=== PATIENT | female | born 1955 | race Caucasian/White ===

== ENCOUNTER 2020-04-30 18:38 | Inpatient (IN) ==
[2020-04-30] MEDS ORDERED: Isovue-370 500 ML BOTTLE IVP ONE (19:23)
[2020-04-30 21:13] LABS: Basophils # 0.1 K/mcL (0.0-0.2); Basophils % 0.7 %; Eosinophils # 0.3 K/mcL (0.0-0.6); Eosinophils % 2.8 %; Hematocrit 41.2 % (35.3-44.9); Hemoglobin 12.8 g/dL (11.5-15.4); Immature Granulocytes % 0.5 % (0-4); Lymphocytes # 1.5 K/mcL (0.6-4.6); Lymphocytes % 12.5 %; Mean Corpuscular HGB Conc 31.1 g/dL (31.6-35.5); Mean Corpuscular Hemoglobin 27.8 pg (28.0-33.3); Mean Corpuscular Volume 89.4 fL (83.0-100.0); Mean Platelet Volume 10.9 fL (9.4-12.4); Monocytes # 0.6 K/mcL (0.0-1.3); Neutrophils # 9.5 K/mcL (1.6-8.9); Platelet Count 304 K/mcL (140-400); Red Blood Count 4.61 M/mcL (3.82-4.97); Red Cell Distribution Width 13.8 % (11.5-14.5); Segmented Neutrophils % 78.5 %; White Blood Count 12.1 K/mcL (4.3-11.1)
[2020-04-30 21:21] LABS: BUN/Creatinine Ratio 13 (6-26); Blood Urea Nitrogen 12 mg/dL (8-23); Calcium 9.8 mg/dL (8.6-10.3); Carbon Dioxide 30 mEq/L (23-29); Chloride 98 mEq/L (98-107); Glucose 309 mg/dL (70-105); Osmolality,Calculated 295 (280-300); Sodium 137 mEq/L (136-145); eGFR For African Americans > 60 (> 60); eGFR For Non-African Americans > 60 (> 60)
[2020-04-30 21:23] LABS: Troponin I 0.03 ng/mL (< 0.04)
[2020-04-30] MEDS ORDERED: Ketorolac 15 MG/ML VIAL IVP ONE (22:36)
[2020-05-01 01:49] LABS: Adenovirus Not Detected (Not Detect); Bordetella Pertussis Not Detected (Not Detect); Chlamydophila pneumoniae Not Detected (Not Detect); Coronavirus 229E Not Detected (Not Detect); Coronavirus HKU1 Not Detected (Not Detect); Coronavirus NL63 Not Detected (Not Detect); Coronavirus OC43 Not Detected (Not Detect); Human Metapneumovirus Not Detected (Not Detect); Human Rhinovirus/Enterovirus Not Detected (Not Detect); Influenza A Subtype 2009 H1 Not Detected (Not Detect); Influenza B Not Detected (Not Detect); Mycoplasma pneumoniae Not Detected (Not Detect); Parainfluenza Virus 1 Not Detected (Not Detect); Parainfluenza Virus 2 Not Detected (Not Detect); Parainfluenza Virus 3 Not Detected (Not Detect); Parainfluenza Virus 4 Not Detected (Not Detect); Respiratory Syncytial Virus Not Detected (Not Detect); SARS-CoV-2 Not Detected (Not Detect)
[2020-05-01] MEDS ORDERED: *HR* Promethazine 25 MG/ML VIAL IVP PRN (03:30)
[2020-05-01] MEDS ORDERED: Acetaminophen 325 MG TABLET PO PRN (03:30)
[2020-05-01] MEDS ORDERED: Naloxone 0.4 MG/ML INJ IVP PRN (03:30)
[2020-05-01] MEDS ORDERED: *HR* Dextrose 50 % in Water (Vial) 50 ML VIAL IVP PRN (03:31)
[2020-05-01] MEDS ORDERED: D5% in Water 1,000 ML IVC PRN (03:31)
[2020-05-01] MEDS ORDERED: Dextrose Gel 15 GM/37.5 ML TUBE PO PRN ×2 (03:31)
[2020-05-01] MEDS: diazePAM 5 MG TABLET PO SCH ×2 (03:51→20:10)
[2020-05-01] MEDS: *HR* OxyCODONE Immed Rel 15 MG TABLET PO PRN ×3 (04:21→20:10)
[2020-05-01] MEDS: Insulin LISPRO 300 UNITS/3 ML VIAL SQ SCH ×4 (05:57→18:48)
[2020-05-01] MEDS: MethylPREDNISolone 40 MG/ML VIAL IVP SCH ×2 (07:06→18:50)
[2020-05-01 07:18] LABS: Basophils # 0.1 K/mcL (0.0-0.2); Basophils % 1.1 %; Eosinophils # 0.5 K/mcL (0.0-0.6); Eosinophils % 4.3 %; Hematocrit 40.9 % (35.3-44.9); Hemoglobin 12.8 g/dL (11.5-15.4); Immature Granulocytes % 0.4 % (0-4); Lymphocytes # 2.4 K/mcL (0.6-4.6); Lymphocytes % 21.1 %; Mean Corpuscular HGB Conc 31.3 g/dL (31.6-35.5); Mean Corpuscular Hemoglobin 28.1 pg (28.0-33.3); Mean Corpuscular Volume 89.9 fL (83.0-100.0); Mean Platelet Volume 10.3 fL (9.4-12.4); Monocytes # 0.7 K/mcL (0.0-1.3); Neutrophils # 7.6 K/mcL (1.6-8.9); Platelet Count 277 K/mcL (140-400); Red Blood Count 4.55 M/mcL (3.82-4.97); Red Cell Distribution Width 13.8 % (11.5-14.5); Segmented Neutrophils % 67.1 %; White Blood Count 11.4 K/mcL (4.3-11.1)
[2020-05-01 07:38] LABS: Alanine Aminotransferase 9 Units/L (7-52); Albumin 3.6 g/dL (3.5-5.7); Albumin/Globulin Ratio 1.5 (1.1-2.2); Alkaline Phosphatase 86 Units/L (34-104); Aspartate Amino Transferase 11 Units/L (13-39); BUN/Creatinine Ratio 15 (6-26); Bilirubin,Total 0.7 mg/dL (0.3-1.0); Blood Urea Nitrogen 12 mg/dL (8-23); Calcium 9.3 mg/dL (8.6-10.3); Carbon Dioxide 29 mEq/L (23-29); Chloride 99 mEq/L (98-107); Globulin 2.4 g/dL (2.4-3.5); Glucose 303 mg/dL (70-105); Magnesium 1.5 mg/dL (1.6-2.6); Osmolality,Calculated 297 (280-300); Potassium 3.8 mEq/L (3.5-5.1); Sodium 138 mEq/L (136-145); eGFR For African Americans > 60 (> 60); eGFR For Non-African Americans > 60 (> 60)
[2020-05-01] MEDS ORDERED: Azithromycin 500 MG VIAL ONE (07:40)
[2020-05-01 07:49] LABS: Troponin I 0.18 ng/mL (< 0.04)
[2020-05-01] MEDS: Famotidine 20 MG TABLET PO SCH (07:56)
[2020-05-01] MEDS ORDERED: Aspirin 325 MG TABLET PO ONE (08:31)
[2020-05-01] MEDS ORDERED: Nitroglycerin 0.4 MG TAB.SUBL SL PRN (08:31)
[2020-05-01] MEDS ORDERED: Perflutren Lipid Microsphere 1.3 ML in 0.9 % Sodium Chloride 8.7 ML IVP PRN (08:31)
[2020-05-01] MEDS ORDERED: Azithromycin 500 MG in 0.9 % Sodium Chloride 250 ML IVPB SCH (09:00)
[2020-05-01] MEDS: tiZANidine 4 MG TABLET PO SCH ×3 (12:03→20:10)
[2020-05-01] MEDS ORDERED: Ipratropium/Albuterol Neb 3 ML IH ONE (12:11)
[2020-05-02] MEDS: *HR* OxyCODONE Immed Rel 15 MG TABLET PO PRN ×4 (02:11→21:50)
[2020-05-02 03:06] LABS: Hematocrit 41.3 % (35.3-44.9); Hemoglobin 12.4 g/dL (11.5-15.4); Mean Corpuscular Hemoglobin 26.6 pg (28.0-33.3); Mean Corpuscular Volume 88.6 fL (83.0-100.0); Mean Platelet Volume 10.3 fL (9.4-12.4); Platelet Count 287 K/mcL (140-400); Red Blood Count 4.66 M/mcL (3.82-4.97); White Blood Count 13.3 K/mcL (4.3-11.1)
[2020-05-02] MEDS: MethylPREDNISolone 40 MG/ML VIAL IVP SCH (05:52)
[2020-05-02 06:23] LABS: BUN/Creatinine Ratio 22 (6-26); Blood Urea Nitrogen 20 mg/dL (8-23); Calcium 9.4 mg/dL (8.6-10.3); Carbon Dioxide 25 mEq/L (23-29); Chloride 96 mEq/L (98-107); Glucose 385 mg/dL (70-105); Osmolality,Calculated 295 (280-300); Potassium 4.3 mEq/L (3.5-5.1); Sodium 133 mEq/L (136-145); Troponin I 0.07 ng/mL (< 0.04); eGFR For African Americans > 60 (> 60); eGFR For Non-African Americans > 60 (> 60)
[2020-05-02] MEDS ORDERED: D5% in Water 1,000 ML IVC PRN (08:28)
[2020-05-02] MEDS ORDERED: *HR* Dextrose 50 % in Water (Vial) 50 ML VIAL IVP PRN (08:28)
[2020-05-02] MEDS ORDERED: Dextrose Gel 15 GM/37.5 ML TUBE PO PRN ×2 (08:28)
[2020-05-02] MEDS: Aspirin 81 MG TAB.CHEW PO SCH (09:21)
[2020-05-02] MEDS: Famotidine 20 MG TABLET PO SCH (09:22)
[2020-05-02] MEDS: Azithromycin 250 MG TABLET PO SCH (09:22)
[2020-05-02] MEDS: diazePAM 5 MG TABLET PO SCH ×2 (09:24→20:47)
[2020-05-02] MEDS: tiZANidine 4 MG TABLET PO SCH ×3 (09:27→20:48)
[2020-05-02] MEDS: predniSONE 20 MG TABLET PO SCH (09:27)
[2020-05-02] MEDS: Insulin LISPRO 300 UNITS/3 ML VIAL SQ SCH ×3 (10:42→16:14)
[2020-05-02] MEDS ORDERED: SUMAtriptan 6 MG/0.5 ML SQ ONE (14:01)
[2020-05-02] MEDS: Levalbuterol Neb 1.25 MG/3 ML IH SCH ×2 (18:36→21:43)
[2020-05-02] MEDS: Budesonide/Formoterol 160/4.5 1 PUFF INH IH SCH (21:43)
[2020-05-03] MEDS: Levalbuterol Neb 1.25 MG/3 ML IH SCH ×4 (03:37→20:01)
[2020-05-03] MEDS: *HR* OxyCODONE Immed Rel 15 MG TABLET PO PRN ×2 (04:55→13:32)
[2020-05-03 05:06] LABS: Hematocrit 37.2 % (35.3-44.9); Hemoglobin 11.4 g/dL (11.5-15.4); Mean Corpuscular HGB Conc 30.6 g/dL (31.6-35.5); Mean Corpuscular Hemoglobin 27.3 pg (28.0-33.3); Mean Corpuscular Volume 89.2 fL (83.0-100.0); Mean Platelet Volume 10.7 fL (9.4-12.4); Platelet Count 291 K/mcL (140-400); Red Blood Count 4.17 M/mcL (3.82-4.97); Red Cell Distribution Width 14.2 % (11.5-14.5); White Blood Count 15.7 K/mcL (4.3-11.1)
[2020-05-03 05:25] LABS: BUN/Creatinine Ratio 27 (6-26); Blood Urea Nitrogen 23 mg/dL (8-23); Calcium 9.1 mg/dL (8.6-10.3); Carbon Dioxide 31 mEq/L (23-29); Chloride 97 mEq/L (98-107); Glucose 364 mg/dL (70-105); Osmolality,Calculated 296 (280-300); Potassium 4.4 mEq/L (3.5-5.1); Sodium 134 mEq/L (136-145); eGFR For African Americans > 60 (> 60); eGFR For Non-African Americans > 60 (> 60)
[2020-05-03] MEDS: tiZANidine 4 MG TABLET PO SCH ×3 (07:56→20:10)
[2020-05-03] MEDS: Aspirin 81 MG TAB.CHEW PO SCH (07:56)
[2020-05-03] MEDS: predniSONE 20 MG TABLET PO SCH (07:56)
[2020-05-03] MEDS: diazePAM 5 MG TABLET PO SCH ×2 (07:56→20:09)
[2020-05-03] MEDS: Famotidine 20 MG TABLET PO SCH (07:56)
[2020-05-03] MEDS: Azithromycin 250 MG TABLET PO SCH (07:56)
[2020-05-03] MEDS: Insulin LISPRO 300 UNITS/3 ML VIAL SQ SCH ×4 (08:25→17:19)
[2020-05-03] MEDS ORDERED: SUMAtriptan 6 MG/0.5 ML SQ ONE ×2 (09:45→19:29)
[2020-05-03] MEDS: Budesonide/Formoterol 160/4.5 1 PUFF INH IH SCH ×2 (10:07→20:01)
[2020-05-03] MEDS: Ipratropium/Albuterol Neb 3 ML IH SCH ×3 (15:22→23:23)
[2020-05-03] MEDS: *HR* OxyCODONE Immed Rel 15 MG TABLET PO SCH ×2 (20:08→22:20)
[2020-05-03] MEDS: Insulin DETEMIR 100 UNIT/ML X5UNITS SQ SCH (20:13)
[2020-05-04] MEDS ORDERED: *HR* HYDROmorphone 2 MG TABLET PO ONE (02:17)
[2020-05-04] MEDS: Ipratropium/Albuterol Neb 3 ML IH SCH ×6 (03:59→23:36)
[2020-05-04] MEDS: Levalbuterol Neb 1.25 MG/3 ML IH SCH ×4 (03:59→20:21)
[2020-05-04 05:18] LABS: Hemoglobin 11.7 g/dL (11.5-15.4); Mean Corpuscular HGB Conc 30.8 g/dL (31.6-35.5); Mean Corpuscular Hemoglobin 28.1 pg (28.0-33.3); Mean Corpuscular Volume 91.3 fL (83.0-100.0); Mean Platelet Volume 10.6 fL (9.4-12.4); Platelet Count 296 K/mcL (140-400); Red Blood Count 4.16 M/mcL (3.82-4.97); Red Cell Distribution Width 14.4 % (11.5-14.5); White Blood Count 12.2 K/mcL (4.3-11.1)
[2020-05-04 05:39] LABS: BUN/Creatinine Ratio 22 (6-26); Blood Urea Nitrogen 18 mg/dL (8-23); Calcium 8.6 mg/dL (8.6-10.3); Carbon Dioxide 31 mEq/L (23-29); Chloride 100 mEq/L (98-107); Glucose 220 mg/dL (70-105); Osmolality,Calculated 293 (280-300); Potassium 3.9 mEq/L (3.5-5.1); Sodium 137 mEq/L (136-145); eGFR For African Americans > 60 (> 60); eGFR For Non-African Americans > 60 (> 60)
[2020-05-04] MEDS: Budesonide/Formoterol 160/4.5 1 PUFF INH IH SCH ×2 (07:55→20:16)
[2020-05-04] MEDS: predniSONE 20 MG TABLET PO SCH (08:42)
[2020-05-04] MEDS: *HR* OxyCODONE Immed Rel 15 MG TABLET PO SCH ×4 (08:42→20:39)
[2020-05-04] MEDS: Famotidine 20 MG TABLET PO SCH (08:42)
[2020-05-04] MEDS: Aspirin 81 MG TAB.CHEW PO SCH (08:42)
[2020-05-04] MEDS: diazePAM 5 MG TABLET PO SCH ×2 (08:42→20:40)
[2020-05-04] MEDS: Insulin LISPRO 300 UNITS/3 ML VIAL SQ SCH ×3 (08:43→17:22)
[2020-05-04] MEDS: tiZANidine 4 MG TABLET PO SCH ×3 (08:43→20:40)
[2020-05-04] MEDS ORDERED: Morphine Sulfate 2 MG/ML SYRINGE IVP PRN (12:06)
[2020-05-04] MEDS ORDERED: SUMAtriptan 6 MG/0.5 ML SQ ONE (12:06)
[2020-05-04] MEDS ORDERED: Morphine Sulfate 2 MG/ML SYRINGE IVP ONE (12:06)
[2020-05-04] MEDS: MethylPREDNISolone 40 MG/ML VIAL IVP SCH ×3 (12:31→23:42)
[2020-05-04] MEDS: Insulin DETEMIR 100 UNIT/ML X5UNITS SQ SCH (20:40)
[2020-05-05] MEDS: Ipratropium/Albuterol Neb 3 ML IH SCH ×3 (03:42→11:19)
[2020-05-05] MEDS: Levalbuterol Neb 1.25 MG/3 ML IH SCH ×2 (03:45→07:51)
[2020-05-05 04:44] LABS: Hematocrit 42.5 % (35.3-44.9); Hemoglobin 12.6 g/dL (11.5-15.4); Mean Corpuscular HGB Conc 29.6 g/dL (31.6-35.5); Mean Corpuscular Hemoglobin 26.8 pg (28.0-33.3); Mean Corpuscular Volume 90.4 fL (83.0-100.0); Mean Platelet Volume 10.5 fL (9.4-12.4); Platelet Count 324 K/mcL (140-400); White Blood Count 12.4 K/mcL (4.3-11.1)
[2020-05-05 05:03] LABS: BUN/Creatinine Ratio 18 (6-26); Blood Urea Nitrogen 17 mg/dL (8-23); Calcium 9.2 mg/dL (8.6-10.3); Carbon Dioxide 32 mEq/L (23-29); Chloride 96 mEq/L (98-107); Glucose 414 mg/dL (70-105); Osmolality,Calculated 297 (280-300); Potassium 4.7 mEq/L (3.5-5.1); Sodium 134 mEq/L (136-145); eGFR For African Americans > 60 (> 60); eGFR For Non-African Americans > 60 (> 60)
[2020-05-05 06:54] VITALS: BP 162/76
[2020-05-05] MEDS: Budesonide/Formoterol 160/4.5 1 PUFF INH IH SCH (07:49)
[2020-05-05] MEDS: Famotidine 20 MG TABLET PO SCH (08:10)
[2020-05-05] MEDS: Aspirin 81 MG TAB.CHEW PO SCH (08:10)
[2020-05-05] MEDS: diazePAM 5 MG TABLET PO SCH (08:10)
[2020-05-05] MEDS: *HR* OxyCODONE Immed Rel 15 MG TABLET PO SCH (08:11)
[2020-05-05] MEDS: tiZANidine 4 MG TABLET PO SCH (08:11)
[2020-05-05] MEDS: Insulin LISPRO 300 UNITS/3 ML VIAL SQ SCH (08:11)
[2020-05-05] MEDS: MethylPREDNISolone 40 MG/ML VIAL IVP SCH (08:11)
== END 2020-05-05 12:33 | disposition home or self-care (01) | DRG 190 ==
LOC: EMEROOARM 18:38 → CDU 18:38 → SUATTDRO 05-01 02:12 → CDU 05-01 02:55 → 3ANU 05-01 18:33
PROVIDERS: ADMIT Student in an Organized Health Care Education/Training Program; ATTEND Student in an Organized Health Care Education/Training Program

== ENCOUNTER 2021-08-24 12:28 | Observation (INO) ==
[2021-08-24 15:05] LABS: Basophils # 0.1 K/mcL (0.0-0.2); Basophils % 0.8 %; Eosinophils # 0.3 K/mcL (0.0-0.6); Eosinophils % 3.8 %; Hematocrit 35.5 % (35.3-44.9); Hemoglobin 10.9 g/dL (11.5-15.4); Immature Granulocytes % 1.3 % (0-4); Lymphocytes # 0.5 K/mcL (0.6-4.6); Lymphocytes % 5.6 %; Mean Corpuscular HGB Conc 30.7 g/dL (31.6-35.5); Mean Corpuscular Volume 91.3 fL (83.0-100.0); Mean Platelet Volume 9.7 fL (9.4-12.4); Monocytes # 0.9 K/mcL (0.0-1.3); Monocytes % 10.8 %; Neutrophils # 6.7 K/mcL (1.6-8.9); Platelet Count 375 K/mcL (140-400); Red Blood Count 3.89 M/mcL (3.82-4.97); Red Cell Distribution Width 13.2 % (11.5-14.5); Segmented Neutrophils % 77.7 %; White Blood Count 8.6 K/mcL (4.3-11.1)
[2021-08-24 15:26] LABS: BUN/Creatinine Ratio 8 (6-26); Blood Urea Nitrogen 7 mg/dL (8-23); Carbon Dioxide 29 mEq/L (23-29); Chloride 103 mEq/L (98-107); Potassium 4.3 mEq/L (3.5-5.1); Sodium 138 mEq/L (136-145); eGFR For African Americans > 60 (> 60)
[2021-08-24 15:27] LABS: Alanine Aminotransferase 13 Units/L (7-52); Albumin 3.3 g/dL (3.5-5.7); Albumin/Globulin Ratio 1.1 (1.1-2.2); Alkaline Phosphatase 65 Units/L (34-104); Aspartate Amino Transferase 21 Units/L (13-39); Bilirubin,Total 0.2 mg/dL (0.3-1.0); Globulin 2.9 g/dL (2.4-3.5); Glucose 172 mg/dL (70-105); Osmolality,Calculated 288 (280-300); Total Protein 6.2 g/dL (6.4-8.9); Troponin I < 0.03 ng/mL (< 0.04); eGFR For Non-African Americans > 60 (> 60)
[2021-08-24] MEDS ORDERED: Isovue-370 500 ML BOTTLE IVP ONE (15:31)
[2021-08-24 16:00] LABS: Influenza A PCR Negative (Negative); Influenza B PCR Negative (Negative); Resp. Syncytial Virus PCR Negative (Negative)
[2021-08-24 16:02] LABS: SARS-CoV-2 by PCR (In House) Positive (Negative)
[2021-08-24 16:06] LABS: Amphetamine Screen,Urine Negative ng/mL (Cutoff=1000); Barbiturate Screen,Urine Negative ng/mL (Cutoff=200); Benzodiazepines Screen,Urine Positive ng/mL (Cutoff=200); Cannabinoid Screen,Urine Negative ng/mL (Cutoff = 50); Cocaine Screen,Urine Negative ng/mL (Cutoff= 300); Opiate Screen,Urine Positive ng/mL (Cutoff=300); Phencyclidine Screen,Urine Negative ng/mL (Cutoff=25)
[2021-08-24 16:44] LABS: Amorphous Sediment,Urine Few per hpf (None-Few); Bacteria,Urine Few per hpf (None-Few); Bilirubin,Urine Negative (Negative); Blood,Urine Negative (Negative); Clarity,Urine Turbid (Clear); Color,Urine Yellow (Yellow); Glucose,Urine (UA) Normal (Normal); Ketones,Urine 10 mg/dL (Negative); Leukocyte Esterase,Urine Negative (Negative); Mucus,Urine Few per lpf (None-Few); Nitrite,Urine Negative (Negative); PH,Urine 7.5 pH Units (5.0-8.0); Protein,Urine Trace mg/dL (Neg-Trace); RBC,Urine 0-3 per hpf (0-3); Specific Gravity,Urine 1.019 (1.010-1.025); Urobilinogen,Urine Normal (Normal)
[2021-08-24] MEDS ORDERED: Ondansetron ODT 4 MG TAB.RAPDIS SL PRN (18:17)
[2021-08-24] MEDS ORDERED: Naloxone 0.4 MG/ML INJ IVP PRN (18:17)
[2021-08-24] MEDS ORDERED: *HR* OxyCODONE Immed Rel 5 MG TABLET PO PRN (18:29)
[2021-08-24] MEDS: dexAMETHasone 4 MG TABLET PO SCH (19:55)
[2021-08-24 20:04] LABS: C-Reactive Protein 32 mg/L (Less than 10)
[2021-08-24] MEDS ORDERED: *HR* OxyCODONE Immed Rel 15 MG TABLET PO ONE (20:32)
[2021-08-24] MEDS: Budesonide/Formoterol 80/4.5 1 PUFF INH IH SCH (20:35)
[2021-08-24 20:44] LABS: Ferritin 55 ng/mL (10-120)
[2021-08-24] MEDS ORDERED: Acetaminophen 325 MG TABLET PO ONE (23:39)
[2021-08-25 04:44] LABS: Basophils # 0.1 K/mcL (0.0-0.2); Eosinophils % 0.2 %; Hematocrit 35.7 % (35.3-44.9); Immature Granulocytes % 1.4 % (0-4); Lymphocytes # 0.4 K/mcL (0.6-4.6); Lymphocytes % 8.2 %; Mean Corpuscular HGB Conc 30.8 g/dL (31.6-35.5); Mean Corpuscular Hemoglobin 27.8 pg (28.0-33.3); Mean Corpuscular Volume 90.2 fL (83.0-100.0); Mean Platelet Volume 9.9 fL (9.4-12.4); Monocytes # 0.1 K/mcL (0.0-1.3); Monocytes % 2.5 %; Neutrophils # 4.2 K/mcL (1.6-8.9); Platelet Count 332 K/mcL (140-400); Red Blood Count 3.96 M/mcL (3.82-4.97); Segmented Neutrophils % 86.7 %; White Blood Count 4.9 K/mcL (4.3-11.1)
[2021-08-25 05:06] LABS: Alanine Aminotransferase 22 Units/L (7-52); Albumin 3.5 g/dL (3.5-5.7); Albumin/Globulin Ratio 1.1 (1.1-2.2); Alkaline Phosphatase 68 Units/L (34-104); Aspartate Amino Transferase 39 Units/L (13-39); BUN/Creatinine Ratio 16 (6-26); Bilirubin,Total 0.3 mg/dL (0.3-1.0); Blood Urea Nitrogen 11 mg/dL (8-23); Carbon Dioxide 25 mEq/L (23-29); Chloride 99 mEq/L (98-107); Chol/HDL Ratio 5.2 (0-4.9); Cholesterol 140 mg/dL (< 200); Globulin 3.1 g/dL (2.4-3.5); Glucose 235 mg/dL (70-105); HDL Cholesterol 27 mg/dL (40-59); LDL Cholesterol,Calculated 86 mg/dL (< 100); Magnesium 1.7 mg/dL (1.6-2.6); Osmolality,Calculated 283 (280-300); Sodium 133 mEq/L (136-145); Total Protein 6.6 g/dL (6.4-8.9); Triglycerides 134 mg/dL (< 150); eGFR For African Americans > 60 (> 60); eGFR For Non-African Americans > 60 (> 60)
[2021-08-25] MEDS ORDERED: Furosemide 20 MG/2 ML VIAL IVP ONE (08:35)
[2021-08-25] MEDS ORDERED: *HR* Dextrose 50 % in Water (Syg) 50 ML SYRINGE IVP PRN (08:37)
[2021-08-25] MEDS ORDERED: Dextrose Gel 15 GM/37.5 ML TUBE PO PRN ×2 (08:37)
[2021-08-25] MEDS: Budesonide/Formoterol 80/4.5 1 PUFF INH IH SCH ×2 (08:50→20:28)
[2021-08-25] MEDS: *HR* Enoxaparin 40 MG/0.4 ML SYRINGE SQ SCH (09:35)
[2021-08-25] MEDS: Azithromycin 250 MG TABLET PO SCH (09:35)
[2021-08-25] MEDS: dexAMETHasone 4 MG TABLET PO SCH (09:35)
[2021-08-25] MEDS: Insulin LISPRO 300 UNITS/3 ML VIAL SUBQ SCH ×2 (11:38→17:23)
[2021-08-25 11:58] LABS: Estimated Average Glucose 183 mg/dl
[2021-08-25] MEDS ORDERED: *HR* OxyCODONE Immed Rel 15 MG TABLET PO PRN (17:02)
[2021-08-25] MEDS: diazePAM 2 MG TABLET PO SCH ×2 (17:22→22:07)
[2021-08-25] MEDS: Gabapentin 300 MG CAPSULE PO SCH ×2 (17:22→21:59)
[2021-08-25] MEDS: *HR* OxyCODONE Immed Rel 5 MG TABLET PO PRN (17:23)
[2021-08-25] MEDS ORDERED: *HR* OxyCODONE ER (12 HR) 10 MG TABLET PO SCH (18:00)
[2021-08-25] MEDS ORDERED: Insulin LISPRO 300 UNITS/3 ML VIAL SUBQ SCH (21:00)
[2021-08-25] MEDS: Topiramate 25 MG TABLET PO SCH (21:59)
[2021-08-26] MEDS: *HR* OxyCODONE Immed Rel 5 MG TABLET PO PRN (05:00)
[2021-08-26] MEDS: *HR* Enoxaparin 40 MG/0.4 ML SYRINGE SQ SCH (05:01)
[2021-08-26 06:42] LABS: Hematocrit 35.1 % (35.3-44.9); Hemoglobin 11.1 g/dL (11.5-15.4); Mean Corpuscular HGB Conc 31.6 g/dL (31.6-35.5); Mean Corpuscular Hemoglobin 28.2 pg (28.0-33.3); Mean Corpuscular Volume 89.1 fL (83.0-100.0); Mean Platelet Volume 9.9 fL (9.4-12.4); Platelet Count 389 K/mcL (140-400); Red Blood Count 3.94 M/mcL (3.82-4.97); Red Cell Distribution Width 13.2 % (11.5-14.5); White Blood Count 5.3 K/mcL (4.3-11.1)
[2021-08-26 07:52] LABS: BUN/Creatinine Ratio 24 (6-26); Blood Urea Nitrogen 18 mg/dL (8-23); Calcium 9.5 mg/dL (8.6-10.3); Carbon Dioxide 29 mEq/L (23-29); Chloride 98 mEq/L (98-107); Glucose 176 mg/dL (70-105); Osmolality,Calculated 290 (280-300); Potassium 3.1 mEq/L (3.5-5.1); Sodium 137 mEq/L (136-145); eGFR For African Americans > 60 (> 60); eGFR For Non-African Americans > 60 (> 60)
[2021-08-26] MEDS: Budesonide/Formoterol 80/4.5 1 PUFF INH IH SCH (08:00)
[2021-08-26 08:17] VITALS: BP 112/69; PULSE 84; TEMP 98
[2021-08-26] MEDS: dexAMETHasone 4 MG TABLET PO SCH (08:27)
[2021-08-26] MEDS: Azithromycin 250 MG TABLET PO SCH (08:27)
[2021-08-26] MEDS: Insulin LISPRO 300 UNITS/3 ML VIAL SUBQ SCH ×3 (08:27→15:42)
[2021-08-26] MEDS: Topiramate 25 MG TABLET PO SCH (08:28)
[2021-08-26] MEDS: diazePAM 2 MG TABLET PO SCH (08:28)
[2021-08-26] MEDS: Gabapentin 300 MG CAPSULE PO SCH ×2 (08:28→14:24)
[2021-08-26 10:49] LABS: C-Reactive Protein 15 mg/L (Less than 10)
[2021-08-26 11:47] VITALS: O2SAT 96
== END 2021-08-26 17:11 | disposition home health service (06) ==
LOC: 3BNU 12:28 → EMEROOARM 12:28 → SUATTDRO 18:01 → 3BNU 18:37
PROVIDERS: ADMIT Student in an Organized Health Care Education/Training Program; ATTEND Internal Medicine